=== PATIENT | female | born 1975 | race American Indian/Alaskan Native ===

== ENCOUNTER 2017-03-08 22:18 | Emergency (ER) | payer BC ==
[~2017-03-08] VITALS: Ht 160 cm; Wt 65.8 kg
[2017-03-08 22:34] VITALS: BP_SYST 98
== END 2017-03-09 01:40 | disposition home or self-care (01) ==
LOC: ER 22:25
DX: E03.9 Hypothyroidism, unspecified (principal); R53.83 Other fatigue; Z76.0 Encounter for issue of repeat prescription

== ENCOUNTER 2017-08-03 22:21 | Emergency (ER) | payer BC ==
[~2017-08-03] VITALS: Ht 157.5 cm; Wt 72.6 kg
[2017-08-03 22:28] VITALS: BP 143/93
== END 2017-08-04 00:54 | disposition home or self-care (01) ==
LOC: ER 22:22
DX: E03.9 Hypothyroidism, unspecified (principal); Z76.0 Encounter for issue of repeat prescription

== ENCOUNTER 2019-08-24 22:10 | Emergency (ER) | payer BC ==
[~2019-08-24] VITALS: Ht 162.6 cm; Wt 81.6 kg
[2019-08-25 03:01] VITALS: BP 140/73
== END 2019-08-25 03:24 | disposition home or self-care (01) ==
LOC: ER 22:18
DX: E03.9 Hypothyroidism, unspecified (principal); Z76.0 Encounter for issue of repeat prescription
CPT/HCPCS: 36415; 84443

== ENCOUNTER 2019-11-16 21:47 | Emergency (ER) | payer BC, MEDICAID ==
[~2019-11-16] VITALS: Ht 160 cm; Wt 59.0 kg
[2019-11-16 23:14] LABS: Basophils # (auto) 0 uL; Basophils % (auto) 0.7 % (0.0-2.0); Eosinophils # (auto) 0.1 uL; Hematocrit 22.8 % (36.0-46.0); Lymphocytes # (auto) 1.9 uL; Lymphocytes % (auto) 33.8 % (10.0-50.0); Mean Corpuscular Hemoglobin 17.1 pg (28.0-32.0); Mean Corpuscular Hgb Conc. 29.4 g/dL (32.0-36.0); Mean Corpuscular Volume 58.4 fL (80.0-100.0); Monocytes # (auto) 0.6 uL; Monocytes % (auto) 10.6 % (0.0-12.0); Neutrophils # (auto) 2.9 uL; Neutrophils % (auto) 52.9 % (37.0-80.0); Nucleated Red Blood Cells % 0.2 %; Platelet Count (auto) 511 10^3/uL (140-450); White Blood Cell 5.5 10^3/uL (4.4-10.8)
[2019-11-16 23:15] LABS: Red Cell Distribution Width 21.1 % (11.8-14.3)
[2019-11-16 23:20] LABS: Hemoglobin 6.7 g/dL (12.2-16.2)
[2019-11-16 23:30] LABS: INR 1.07 (0.9-1.15); Partial Thromboplastin Time 25.8 sec (23.64-32.05)
[2019-11-16 23:32] LABS: Albumin 4.1 g/dL (3.4-5.0); BUN/Creatinine Ratio 20.3; Calcium 8.2 mg/dL (8.5-10.1); Potassium 3.4 mmol/L (3.5-5.1)
[2019-11-16 23:35] LABS: Bilirubin, Total 0.3 mg/dL (0.2-1.0); Total Protein 8.3 g/dL (6.4-8.2)
[2019-11-17 01:28] VITALS: BP 120/71
[2019-11-17 01:42] VITALS: BP 123/56
[2019-11-17 03:17] VITALS: BP 112/66
[2019-11-17 03:35] VITALS: BP 112/66
[2019-11-17 03:59] VITALS: BP 106/69
[2019-11-17 06:15] VITALS: BP 109/60
== END 2019-11-17 06:37 | disposition home or self-care (01) ==
LOC: ER 21:50
DX: D64.9 Anemia, unspecified (principal)
CPT/HCPCS: 36415; 36430; 80053; 85025; 85610; 85730; 86850; 86900; 86901; 86920; 99285; P9016